=== PATIENT | female | born 1955 | race Caucasian/White ===

== ENCOUNTER 2024-05-07 17:10 | Emergency (ER) | payer MEDICARE, MEDICAID ==
[2024-05-07 17:35] LABS: BASOPHILS PERCENT AUTO 0.5 % (0.0-1.0); HEMATOCRIT 48.5 % (37.0-47.0); HEMOGLOBIN 15.9 g/dL (12.0-16.0); LYMPHOCYTES PERCENT AUTO 23.8 % (20.5-50.1); MEAN CORPUSCULAR HEMOGLOBIN 29.7 pg (27.0-34.0); MEAN CORPUSCULAR HGB CONC 32.8 g/dL (33.0-35.0); MEAN CORPUSCULAR VOLUME 90.7 fL (80-100); MONOCYTES PERCENT AUTO 6.7 % (2-8); PLATELET COUNT,PLT 275 10^3/uL (150-450); RED BLOOD CELL COUNT 5.35 10^6/uL (4.2-5.4); WHITE BLOOD CELL COUNT,WBC 7.4 10^3/uL (5.0-10.0)
[2024-05-07] MEDS: Aspirin 81 MG Tab.Chew PO ONE (17:37)
[2024-05-07 17:56] LABS: ALBUMIN 3.9 g/dL (3.4-5.0); ANION GAP 13.1 mEq/L (7-13); BILIRUBIN TOTAL 0.5 mg/dL (0.2-1.0); BUN/CREATININE RATIO 13.4 (No establ ref range); CALCIUM 10.9 mg/dL (8.5-10.1); CREATININE 0.97 mg/dL (0.55-1.02); EST CRCL DRUG DOSING (CG) 38.76 mL/min; MAGNESIUM 1.7 mg/dL (1.8-2.4); POTASSIUM,K 4.1 mmol/L (3.5-5.1); PROTEIN TOTAL,TP 7.9 g/dL (6.4-8.2)
[2024-05-07] MEDS: Acetaminophen 325 MG Tab PO ONE (18:24)
[2024-05-07] MEDS: Magnesium Sulfate/Water Premix 2 GM in Premix Bag 1 BAG IV ONE (18:24)
[2024-05-07 18:27] LABS: APPEARANCE,URINE SLIGHTLY CLOUDY (CLEAR); BILIRUBIN,URINE NEGATIVE (NEGATIVE); COLOR,URINE YELLOW (YELLOW); GLUCOSE,URINE NEGATIVE (NEGATIVE); KETONES,URINE NEGATIVE (NEGATIVE); LEUKOCYTE ESTERASE,URINE SMALL (NEGATIVE); NITRITE,URINE POSITIVE (NEGATIVE); OCCULT BLOOD,URINE NEGATIVE (NEGATIVE); PROTEIN,URINE NEGATIVE (NEGATIVE); UROBILINOGEN,URINE 0.2 mg/dL (0.2-1.0)
[2024-05-07 18:37] LABS: BACTERIA,URINE MANY /HPF (0-FEW/HPF); EPITHELIAL CELLS,URINE MODERATE /HPF (NOT SEEN); RBC,URINE 0-5 /HPF (0-5); WBC,URINE 40-50 /HPF (0-5/HPF)
[2024-05-07 18:38] LABS: MUCUS,URINE FEW /LPF (NOT SEEN)
[2024-05-07] MEDS: cefTRIAXone 1 GM Vial IVPUSH ONE (18:56)
[2024-05-07 19:04] LABS: LACTIC ACID 1.6 mmol/L (0.4-2.0)
== END 2024-05-07 20:26 | disposition home or self-care (01) ==
LOC: DL.ED 17:10
DX: R07.2 Precordial pain (principal); N39.0 Urinary tract infection, site not specified; E83.42 Hypomagnesemia; L73.2 Hidradenitis suppurativa; Z79.82 Long term (current) use of aspirin; Z79.84 Long term (current) use of oral hypoglycemic drugs; Z79.899 Other long term (current) drug therapy; Z79.891 Long term (current) use of opiate analgesic; Z88.8 Allergy status to other drugs, medicaments and biological substances; Z91.048 Other nonmedicinal substance allergy status
CPT/HCPCS: 36415; 71045; 80053; 81001; 83605; 83690; 83735; 83880; 84484; 85025; 85379; 87086; 87804; 93005; 96365; 96366; 96375; 99285; A9270; J0696; J3475; U0002; 87088; 87186; 93010; 99284

== ENCOUNTER 2024-09-14 11:50 | Inpatient (IN) | payer OTHER, MEDICAID ==
[2024-09-14] MEDS: Iopamidol 612 MG/ML 100 ML Bottle IVPUSH ONE (12:28)
[2024-09-14 12:48] LABS: BASOPHILS PERCENT AUTO 0.6 % (0.0-1.0); EOSINOPHILS PERCENT AUTO 0.1 % (1.0-3.0); HEMATOCRIT 53.2 % (37.0-47.0); HEMOGLOBIN 17.8 g/dL (12.0-16.0); LYMPHOCYTES PERCENT AUTO 10.5 % (20.5-50.1); MEAN CORPUSCULAR HEMOGLOBIN 31.4 pg (27.0-34.0); MEAN CORPUSCULAR HGB CONC 33.5 g/dL (33.0-35.0); MEAN CORPUSCULAR VOLUME 93.8 fL (80-100); MONOCYTES PERCENT AUTO 5.2 % (2-8); NEUTROPHILS PERCENT AUTO 83.6 % (42.2-75.2); PLATELET COUNT,PLT 340 10^3/uL (150-450); RED BLOOD CELL COUNT 5.67 10^6/uL (4.2-5.4); WHITE BLOOD CELL COUNT,WBC 12.8 10^3/uL (5.0-10.0)
[2024-09-14 13:07] LABS: A/G RATIO 0.8; ALANINE AMINOTRANSFERASE,ALT 43 U/L (14-59); ALBUMIN 3.8 g/dL (3.4-5.0); ALKALINE PHOSPHATASE 92 U/L (46-116); ANION GAP 19.8 mEq/L (7-13); ASPARTATE AMNIOTRANSFERASE,AST 77 U/L (15-37); BILIRUBIN TOTAL 1.2 mg/dL (0.2-1.0); BLOOD UREA NITROGEN,BUN 30 mg/dL (7-18); BUN/CREATININE RATIO 27.3 (No establ ref range); CALCIUM 11.5 mg/dL (8.5-10.1); CARBON DIOXIDE,CO2 26 mmol/L (21-32); CHLORIDE,CL 97 mmol/L (98-107); EST CRCL DRUG DOSING (CG) 34.18 mL/min; GLUCOSE RANDOM 228 mg/dL (70-99); MAGNESIUM 2.4 mg/dL (1.8-2.4); POTASSIUM,K 4.8 mmol/L (3.5-5.1); PROTEIN TOTAL,TP 8.8 g/dL (6.4-8.2); SODIUM,NA 138 mmol/L (136-145)
[2024-09-14 13:15] LABS: PROTHROMBIN TIME 10.6 SEC (9.0-12.0)
[2024-09-14 13:27] LABS: CREATINE KINASE,CK 1742 U/L (16-191); ESTIMATED GFR 54 mL/min (>=60)
[2024-09-14 13:30] LABS: ETHANOL BLOOD MEDICAL < 3 mg/dL (0)
[2024-09-14] MEDS: cefTRIAXone 1 GM Vial IVPUSH ONE (14:16)
[2024-09-14 14:19] LABS: APPEARANCE,URINE CLEAR (CLEAR); BILIRUBIN,URINE SMALL (NEGATIVE); COLOR,URINE YELLOW (YELLOW); GLUCOSE,URINE 500 (NEGATIVE); KETONES,URINE 40 (NEGATIVE); LEUKOCYTE ESTERASE,URINE NEGATIVE (NEGATIVE); NITRITE,URINE NEGATIVE (NEGATIVE); OCCULT BLOOD,URINE MODERATE (NEGATIVE); PH,URINE 5.5 (5.0-9.0); PROTEIN,URINE >=300 (NEGATIVE); UROBILINOGEN,URINE 0.2 mg/dL (0.2-1.0)
[2024-09-14] MEDS: Sodium Chloride 0.9% 2,000 ML IV ONE (14:20)
[2024-09-14 14:25] LABS: AMPHETAMINES,URINE NEGATIVE (NEGATIVE); BARBITURATES,URINE NEGATIVE (NEGATIVE); BENZODIAZEPINE,URINE NEGATIVE (NEGATIVE); MDMA (ECSTASY), URINE NEGATIVE (NEGATIVE); METHADONE,URINE NEGATIVE (NEGATIVE); METHAMPHETAMINES,URINE NEGATIVE (NEGATIVE); OPIATES,URINE NEGATIVE (NEGATIVE); OXYCODONE,URINE POSITIVE (NEGATIVE); PHENCYCLIDINE,URINE NEGATIVE (NEGATIVE); TCA,URINE NEGATIVE (NEGATIVE)
[2024-09-14 14:38] LABS: BACTERIA,URINE FEW /HPF (0-FEW/HPF); EPITHELIAL CELLS,URINE MODERATE /HPF (NOT SEEN); MUCUS,URINE OCCASIONAL /LPF (NOT SEEN); RBC,URINE 0-5 /HPF (0-5); WBC,URINE 0-5 /HPF (0-5/HPF)
[2024-09-14] MEDS: Acetaminophen 325 MG Tab PO ONE (14:56)
[2024-09-14 15:59] LABS: O2 DELIVERY DEVICE ROOM AIR
[2024-09-14 16:04] LABS: BICARBONATE,VENOUS 22 mmol/l (19-25); PCO2 VENOUS 39 mmHg (41-51); PH,VENOUS 7.38 (7.31-7.41); PO2 VENOUS 67 mmHg (35-42)
[2024-09-14] MEDS ORDERED: Albuterol/Ipratropium 3.0-0.5 MG/3 ML Neb Soln NEB PRN (16:22)
[2024-09-14] MEDS ORDERED: Sodium Chloride 0.9% 10 ML Syringe FLUSH PRN (16:22)
[2024-09-14] MEDS ORDERED: Ondansetron 4 MG/2 ML SDV IVPUSH PRN (16:22)
[2024-09-14] MEDS: Sodium Chloride 0.9% 1,000 ML IV SCH (16:43)
[2024-09-14] MEDS ORDERED: Glucagon,Human Recombinant 1 MG Vial IM PRN (17:00)
[2024-09-14] MEDS ORDERED: 50% Dextrose in Water 50 ML Syringe IVPUSH PRN (17:00)
[2024-09-14 18:08] LABS: HEMOGLOBIN A1C 5.6 % (<5.7)
[2024-09-14] MEDS: cefTRIAXone 2 GM Vial IVPUSH SCH (18:26)
[2024-09-14] MEDS: Insulin Lispro 100 Units/ML 3 ML Vial SUBCUT SCH (18:27)
[2024-09-14] MEDS: Sodium Chloride 0.9% 1,000 ML IV ONE (18:39)
[2024-09-14] MEDS: Carvedilol 3.125 MG Tab PO SCH (20:48)
[2024-09-14] MEDS: Melatonin 3 MG Tab PO PRN (20:48)
[2024-09-14] MEDS: Apixaban 5 MG Tab PO SCH (20:49)
[2024-09-14] MEDS: Pravastatin 20 MG Tab PO SCH (20:50)
[2024-09-14] MEDS: Sodium Chloride 0.9% 10 ML Syringe FLUSH SCH (20:56)
[2024-09-15] MEDS: Acetaminophen 325 MG Tab PO PRN (01:54)
[2024-09-15] MEDS: Pantoprazole 40 MG Tab.CR PO SCH (04:47)
[2024-09-15] MEDS: Acetaminophen/HYDROcodone 325-5 MG Tab PO PRN (04:47)
[2024-09-15 07:00] LABS: BASOPHILS PERCENT AUTO 0.3 % (0.0-1.0); EOSINOPHILS PERCENT AUTO 0.7 % (1.0-3.0); HEMATOCRIT 43.9 % (37.0-47.0); HEMOGLOBIN 14.2 g/dL (12.0-16.0); LYMPHOCYTES PERCENT AUTO 13.7 % (20.5-50.1); MEAN CORPUSCULAR HEMOGLOBIN 31.4 pg (27.0-34.0); MEAN CORPUSCULAR HGB CONC 32.3 g/dL (33.0-35.0); MEAN CORPUSCULAR VOLUME 97.1 fL (80-100); MONOCYTES PERCENT AUTO 9.6 % (2-8); NEUTROPHILS PERCENT AUTO 75.7 % (42.2-75.2); PLATELET COUNT,PLT 289 10^3/uL (150-450); RED BLOOD CELL COUNT 4.52 10^6/uL (4.2-5.4); WHITE BLOOD CELL COUNT,WBC 11.8 10^3/uL (5.0-10.0)
[2024-09-15 07:12] LABS: ALBUMIN 2.9 g/dL (3.4-5.0); ANION GAP 15.2 mEq/L (7-13); BILIRUBIN TOTAL 0.6 mg/dL (0.2-1.0); BUN/CREATININE RATIO 30.7 (No establ ref range); CREATININE 0.88 mg/dL (0.55-1.02); EST CRCL DRUG DOSING (CG) 42.73 mL/min; MAGNESIUM 2.2 mg/dL (1.8-2.4); POTASSIUM,K 4.2 mmol/L (3.5-5.1); PROTEIN TOTAL,TP 6.7 g/dL (6.4-8.2)
[2024-09-15 07:22] LABS: A/G RATIO 0.76
[2024-09-15] MEDS: Ezetimibe 10 MG Tab PO SCH (08:53)
[2024-09-15] MEDS: Magnesium Oxide 400 MG Tab PO SCH (08:53)
[2024-09-15] MEDS: Aspirin 81 MG Tab.EC PO SCH (08:54)
[2024-09-15] MEDS: Polyethylene Glycol 3350 Powder 17 GM Packet PO PRN (11:30)
[2024-09-15] MEDS: Docusate Sodium 100 MG Cap PO PRN (11:30)
[2024-09-15] MEDS ORDERED: QUEtiapine 25 MG Tab PO PRN (19:40)
[2024-09-15] MEDS: Ziprasidone Mesylate 20 MG Vial IM PRN (20:05)
[2024-09-15] MEDS: Saccharomyces Boulardii (Probiotic) 250 MG Cap PO SCH (20:16)
[2024-09-15] MEDS ORDERED: Diclofenac Sodium 1% Gel 100 GM Tube TOP PRN (21:38)
[2024-09-15] MEDS ORDERED: Fluticasone NASAL Spray 16 GM Bottle NASBOTH PRN (21:38)
[2024-09-15] MEDS ORDERED: Simethicone 80 MG Tab.Chew PO PRN ×2 (21:39→22:14)
[2024-09-16] MEDS: Nystatin Topical Powder 60 GM Bottle TOP ONE (00:05)
[2024-09-16] MEDS: Melatonin 3 MG Tab PO SCH (00:46)
[2024-09-16 06:40] LABS: BASOPHILS PERCENT AUTO 0.7 % (0.0-1.0); EOSINOPHILS PERCENT AUTO 3.6 % (1.0-3.0); HEMOGLOBIN 15.6 g/dL (12.0-16.0); LYMPHOCYTES PERCENT AUTO 17.5 % (20.5-50.1); MEAN CORPUSCULAR HEMOGLOBIN 31.3 pg (27.0-34.0); MEAN CORPUSCULAR HGB CONC 31.8 g/dL (33.0-35.0); MEAN CORPUSCULAR VOLUME 98.2 fL (80-100); MONOCYTES PERCENT AUTO 8.3 % (2-8); NEUTROPHILS PERCENT AUTO 69.9 % (42.2-75.2); PLATELET COUNT,PLT 276 10^3/uL (150-450); RED BLOOD CELL COUNT 4.99 10^6/uL (4.2-5.4); WHITE BLOOD CELL COUNT,WBC 10.6 10^3/uL (5.0-10.0)
[2024-09-16 07:03] LABS: A/G RATIO 0.9; ALBUMIN 3.4 g/dL (3.4-5.0); ANION GAP 13.3 mEq/L (7-13); BILIRUBIN TOTAL 0.6 mg/dL (0.2-1.0); BUN/CREATININE RATIO 23.9 (No establ ref range); C-REACTIVE PROTEIN 2.7 ng/dL (<=0.50); CALCIUM 10.2 mg/dL (8.5-10.1); CREATININE 0.71 mg/dL (0.55-1.02); EST CRCL DRUG DOSING (CG) 52.96 mL/min; MAGNESIUM 2.2 mg/dL (1.8-2.4); POTASSIUM,K 4.3 mmol/L (3.5-5.1); PROTEIN TOTAL,TP 7.4 g/dL (6.4-8.2)
[2024-09-16] MEDS ORDERED: GUAIFENESIN 200 MG PO SCH (09:00)
[2024-09-16] MEDS ORDERED: Non-Formulary Medication 1 Each (Lifitegrast [Xiidra] 1 EACH Droperette) EYEBOTH SCH (09:00)
[2024-09-16] MEDS: Gabapentin 300 MG Cap PO SCH (09:33)
[2024-09-16] MEDS: Mirtazapine 15 MG Tab PO SCH (09:34)
[2024-09-16] MEDS: Docusate Sodium 100 MG Cap PO SCH (09:34)
[2024-09-16] MEDS: Empagliflozin 25 MG Tab PO SCH (09:35)
[2024-09-16] MEDS: Loratadine 10 MG Tab PO SCH (09:35)
[2024-09-16] MEDS: Sennosides/Docusate Sodium 50-8.6 MG Tab PO PRN (09:35)
[2024-09-16] MEDS: Nystatin Topical Powder 60 GM Bottle TOP SCH (09:57)
[2024-09-16] MEDS: Lidocaine 5% 700 MG Patch TOP SCH (10:01)
[2024-09-16] MEDS: Modafinil 100 MG Tab PO SCH (13:14)
[2024-09-16] MEDS: hydrALAZINE 20 MG/ML SDV IVPUSH PRN (16:34)
[2024-09-16] MEDS: Capsaicin 0.025% Crm 60 GM Tube TOP PRN (20:15)
[2024-09-16] MEDS ORDERED: Non-Formulary Medication 1 Each (Liraglutide [Victoza 2-Pak] 18 MG/3 ML Pen) SQ SCH (21:00)
[2024-09-17 06:52] LABS: BASOPHILS PERCENT AUTO 0.6 % (0.0-1.0); EOSINOPHILS PERCENT AUTO 2.6 % (1.0-3.0); HEMATOCRIT 45.8 % (37.0-47.0); HEMOGLOBIN 14.7 g/dL (12.0-16.0); LYMPHOCYTES PERCENT AUTO 23.7 % (20.5-50.1); MEAN CORPUSCULAR HEMOGLOBIN 31.7 pg (27.0-34.0); MEAN CORPUSCULAR HGB CONC 32.1 g/dL (33.0-35.0); MEAN CORPUSCULAR VOLUME 98.9 fL (80-100); MONOCYTES PERCENT AUTO 11.1 % (2-8); PLATELET COUNT,PLT 295 10^3/uL (150-450); RED BLOOD CELL COUNT 4.63 10^6/uL (4.2-5.4); WHITE BLOOD CELL COUNT,WBC 8.6 10^3/uL (5.0-10.0)
[2024-09-17 07:09] LABS: ANION GAP 12.1 mEq/L (7-13); BILIRUBIN TOTAL 0.5 mg/dL (0.2-1.0); C-REACTIVE PROTEIN 1.78 ng/dL (<=0.50); CALCIUM 10.2 mg/dL (8.5-10.1); CREATININE 1.13 mg/dL (0.55-1.02); EST CRCL DRUG DOSING (CG) 33.27 mL/min; MAGNESIUM 2.5 mg/dL (1.8-2.4); POTASSIUM,K 4.1 mmol/L (3.5-5.1); PROTEIN TOTAL,TP 6.8 g/dL (6.4-8.2)
[2024-09-17 07:11] LABS: A/G RATIO 0.79
[2024-09-17] MEDS: Modafinil 100 MG Tab PO SCH (10:07)
[2024-09-18 06:29] LABS: BASOPHILS PERCENT AUTO 0.8 % (0.0-1.0); EOSINOPHILS PERCENT AUTO 5.7 % (1.0-3.0); HEMATOCRIT 43.2 % (37.0-47.0); HEMOGLOBIN 13.5 g/dL (12.0-16.0); LYMPHOCYTES PERCENT AUTO 29.8 % (20.5-50.1); MEAN CORPUSCULAR HEMOGLOBIN 31.3 pg (27.0-34.0); MEAN CORPUSCULAR HGB CONC 31.3 g/dL (33.0-35.0); MONOCYTES PERCENT AUTO 11.3 % (2-8); NEUTROPHILS PERCENT AUTO 52.4 % (42.2-75.2); PLATELET COUNT,PLT 284 10^3/uL (150-450); RED BLOOD CELL COUNT 4.32 10^6/uL (4.2-5.4); WHITE BLOOD CELL COUNT,WBC 7.7 10^3/uL (5.0-10.0)
[2024-09-18 06:59] LABS: A/G RATIO 0.86; ANION GAP 12.3 mEq/L (7-13); BILIRUBIN TOTAL 0.5 mg/dL (0.2-1.0); BUN/CREATININE RATIO 32.6 (No establ ref range); C-REACTIVE PROTEIN 1.01 ng/dL (<=0.50); CALCIUM 9.7 mg/dL (8.5-10.1); CREATININE 0.89 mg/dL (0.55-1.02); EST CRCL DRUG DOSING (CG) 42.25 mL/min; MAGNESIUM 2.3 mg/dL (1.8-2.4); POTASSIUM,K 4.3 mmol/L (3.5-5.1); PROTEIN TOTAL,TP 6.5 g/dL (6.4-8.2)
== END 2024-09-18 12:32 | disposition swing bed (61) | DRG 872 ==
LOC: DL.ED 11:50 → DL.MS 15:26
PROVIDERS: ADMIT Internal Medicine; ATTEND Internal Medicine
DX: A41.9 Sepsis, unspecified organism (principal); N17.9 Acute kidney failure, unspecified; Z68.43 Body mass index [BMI] 50.0-59.9, adult; E66.9 Obesity, unspecified; T79.6XXA Traumatic ischemia of muscle, initial encounter; E86.0 Dehydration; R79.89 Other specified abnormal findings of blood chemistry; M25.511 Pain in right shoulder; D75.1 Secondary polycythemia; E83.52 Hypercalcemia; E80.6 Other disorders of bilirubin metabolism; E78.5 Hyperlipidemia, unspecified; E11.319 Type 2 diabetes mellitus with unspecified diabetic retinopathy without macular edema; H35.30 Unspecified macular degeneration; E11.40 Type 2 diabetes mellitus with diabetic neuropathy, unspecified; E11.22 Type 2 diabetes mellitus with diabetic chronic kidney disease; N18.30 Chronic kidney disease, stage 3 unspecified; I12.9 Hypertensive chronic kidney disease with stage 1 through stage 4 chronic kidney disease, or unspecified chronic kidney disease; F32.A Depression, unspecified; B37.2 Candidiasis of skin and nail; W19.XXXA Unspecified fall, initial encounter; G47.33 Obstructive sleep apnea (adult) (pediatric); K76.0 Fatty (change of) liver, not elsewhere classified; N32.89 Other specified disorders of bladder; E66.813 Obesity, class 3; F41.9 Anxiety disorder, unspecified; R62.7 Adult failure to thrive; N61.0 Mastitis without abscess; Z88.8 Allergy status to other drugs, medicaments and biological substances; Z79.899 Other long term (current) drug therapy; Z79.01 Long term (current) use of anticoagulants; Z79.82 Long term (current) use of aspirin; Z79.2 Long term (current) use of antibiotics; Z79.4 Long term (current) use of insulin
CPT/HCPCS: 36415; 70450; 71045; 71260; 72125; 73030-RT; 74177; 80053; 80305-QW; 80307; 81001; 82009; 82550; 82803; 82947; 83036; 83605; 83735; 84100; 84484; 85025; 85379; 85610; 85730; 86140; 87040; 93005; 93010; 94010; 96361; 96374; 97161-GP; 97165-GO; 97535-GO; 99285; 99285-25; A9270-GY; C1758; J0360; J0696; J1815-GY; J3486; J3490; J7030; Q9967

== ENCOUNTER 2024-09-18 11:42 | Inpatient (IN) | payer MEDICARE, MEDICAID ==
[2024-09-18] MEDS ORDERED: Sodium Chloride 0.9% 10 ML Syringe FLUSH PRN ×2 (12:05)
[2024-09-18] MEDS ORDERED: 50% Dextrose in Water 50 ML Syringe IVPUSH PRN (12:05)
[2024-09-18] MEDS ORDERED: Fluticasone NASAL Spray 16 GM Bottle NASBOTH PRN (12:05)
[2024-09-18] MEDS ORDERED: Ziprasidone Mesylate 20 MG Vial IM PRN (12:05)
[2024-09-18] MEDS ORDERED: Simethicone 80 MG Tab.Chew PO PRN (12:05)
[2024-09-18] MEDS ORDERED: Albuterol/Ipratropium 3.0-0.5 MG/3 ML Neb Soln NEB PRN (12:05)
[2024-09-18] MEDS ORDERED: Glucagon,Human Recombinant 1 MG Vial IM PRN ×2 (12:05)
[2024-09-18] MEDS ORDERED: Melatonin 3 MG Tab PO PRN (12:05)
[2024-09-18] MEDS ORDERED: Ondansetron 4 MG/2 ML SDV IVPUSH PRN (12:05)
[2024-09-18] MEDS: Gabapentin 300 MG Cap PO SCH (12:56)
[2024-09-18] MEDS: Acetaminophen 325 MG Tab PO PRN (12:57)
[2024-09-18] MEDS: Capsaicin 0.025% Crm 60 GM Tube TOP PRN (15:19)
[2024-09-18] MEDS: Insulin Lispro 100 Units/ML 3 ML Vial SUBCUT SCH (17:23)
[2024-09-18] MEDS: Acetaminophen/HYDROcodone 325-5 MG Tab PO PRN (19:24)
[2024-09-18] MEDS: Carvedilol 3.125 MG Tab PO SCH (20:37)
[2024-09-18] MEDS: Melatonin 3 MG Tab PO SCH (20:38)
[2024-09-18] MEDS: Pravastatin 20 MG Tab PO SCH (20:39)
[2024-09-18] MEDS: Saccharomyces Boulardii (Probiotic) 250 MG Cap PO SCH (20:39)
[2024-09-18] MEDS: Apixaban 5 MG Tab PO SCH (20:40)
[2024-09-18] MEDS: Nystatin Topical Powder 60 GM Bottle TOP SCH (20:41)
[2024-09-18] MEDS: Sodium Chloride 0.9% 10 ML Syringe FLUSH SCH (20:46)
[2024-09-18] MEDS ORDERED: Sodium Chloride 0.9% 10 ML Syringe FLUSH SCH (21:00)
[2024-09-19] MEDS: Pantoprazole 40 MG Tab.CR PO SCH (05:57)
[2024-09-19] MEDS: Magnesium Oxide 400 MG Tab PO SCH (09:00)
[2024-09-19] MEDS: Aspirin 81 MG Tab.EC PO SCH (09:00)
[2024-09-19] MEDS: Docusate Sodium 100 MG Cap PO SCH (09:00)
[2024-09-19] MEDS: Modafinil 100 MG Tab PO SCH (09:00)
[2024-09-19] MEDS: Ezetimibe 10 MG Tab PO SCH (09:01)
[2024-09-19] MEDS: Empagliflozin 25 MG Tab PO SCH (09:01)
[2024-09-19] MEDS: Loratadine 10 MG Tab PO SCH (09:01)
[2024-09-19] MEDS: Lidocaine 5% 700 MG Patch TOP SCH (09:02)
[2024-09-19] MEDS: Mirtazapine 15 MG Tab PO SCH (09:02)
[2024-09-19] MEDS: ICOSAPENT ETHYL 1000 MG PO SCH (13:51)
[2024-09-19] MEDS: Polyethylene Glycol 3350 Powder 17 GM Packet PO PRN (16:55)
[2024-09-19] MEDS: VASCEPA PO SCH (21:53)
[2024-09-20] MEDS: Non-Formulary Medication 1 Each (Liraglutide [Victoza 2-Pak] 1.8 MG) SQ SCH (10:23)
[2024-09-20] MEDS: Non-Formulary Medication 1 Each (Lifitegrast [Xiidra] 1 DROP) EYEBOTH SCH (10:23)
[2024-09-20] MEDS: Melatonin 3 MG Tab PO SCH (21:37)
[2024-09-21] MEDS: Sennosides/Docusate Sodium 50-8.6 MG Tab PO PRN (05:03)
[2024-09-21] MEDS: BIOFREEZE TOP PRN (18:02)
[2024-09-21] MEDS: Temazepam 15 MG Cap PO PRN (20:47)
[2024-09-21] MEDS: Docusate Sodium 100 MG Cap PO PRN (20:47)
[2024-09-21] MEDS ORDERED: Non-Formulary Medication 1 Each (Gabapentin 600 MG Tablet) PO SCH (21:00)
[2024-09-24 06:35] LABS: BASOPHILS PERCENT AUTO 0.5 % (0.0-1.0); EOSINOPHILS PERCENT AUTO 4.7 % (1.0-3.0); HEMATOCRIT 40.6 % (37.0-47.0); HEMOGLOBIN 12.9 g/dL (12.0-16.0); LYMPHOCYTES PERCENT AUTO 28.8 % (20.5-50.1); MEAN CORPUSCULAR HEMOGLOBIN 31.5 pg (27.0-34.0); MEAN CORPUSCULAR HGB CONC 31.8 g/dL (33.0-35.0); MONOCYTES PERCENT AUTO 10.7 % (2-8); NEUTROPHILS PERCENT AUTO 55.3 % (42.2-75.2); PLATELET COUNT,PLT 288 10^3/uL (150-450); WHITE BLOOD CELL COUNT,WBC 6.6 10^3/uL (5.0-10.0)
[2024-09-24 06:59] LABS: A/G RATIO 0.91; ANION GAP 9.4 mEq/L (7-13); BILIRUBIN TOTAL 0.2 mg/dL (0.2-1.0); BUN/CREATININE RATIO 24.1 (No establ ref range); CALCIUM 9.7 mg/dL (8.5-10.1); CREATININE 0.83 mg/dL (0.55-1.02); EST CRCL DRUG DOSING (CG) 45.3 mL/min; MAGNESIUM 2.2 mg/dL (1.8-2.4); POTASSIUM,K 4.4 mmol/L (3.5-5.1); PROTEIN TOTAL,TP 6.3 g/dL (6.4-8.2)
[2024-09-25 11:42] LABS: APPEARANCE,URINE CLEAR (CLEAR); BILIRUBIN,URINE NEGATIVE (NEGATIVE); COLOR,URINE YELLOW (YELLOW); GLUCOSE,URINE 500 (NEGATIVE); KETONES,URINE NEGATIVE (NEGATIVE); LEUKOCYTE ESTERASE,URINE NEGATIVE (NEGATIVE); NITRITE,URINE NEGATIVE (NEGATIVE); OCCULT BLOOD,URINE NEGATIVE (NEGATIVE); PH,URINE 5.5 (5.0-9.0); PROTEIN,URINE NEGATIVE (NEGATIVE); UROBILINOGEN,URINE 0.2 mg/dL (0.2-1.0)
[2024-09-25 12:24] LABS: BACTERIA,URINE FEW /HPF (0-FEW/HPF); EPITHELIAL CELLS,URINE FEW /HPF (NOT SEEN); RBC,URINE 0-5 /HPF (0-5)
[2024-09-25 12:25] LABS: YEAST,URINE FEW /HPF (NOT SEEN)
[2024-09-25] MEDS: Fluconazole 100 MG Tab PO ONE (16:08)
[2024-09-26] MEDS: Fluconazole 100 MG Tab PO SCH (08:57)
== END 2024-09-27 13:50 | disposition home or self-care (01) | DRG 948 ==
LOC: DL.MS 12:13
PROVIDERS: ADMIT Internal Medicine; ATTEND Internal Medicine
DX: R53.1 Weakness (principal); M62.82 Rhabdomyolysis; Z68.43 Body mass index [BMI] 50.0-59.9, adult; N39.0 Urinary tract infection, site not specified; H04.129 Dry eye syndrome of unspecified lacrimal gland; I25.10 Atherosclerotic heart disease of native coronary artery without angina pectoris; I10 Essential (primary) hypertension; E78.5 Hyperlipidemia, unspecified; I48.0 Paroxysmal atrial fibrillation; N18.30 Chronic kidney disease, stage 3 unspecified; E11.22 Type 2 diabetes mellitus with diabetic chronic kidney disease; E11.40 Type 2 diabetes mellitus with diabetic neuropathy, unspecified; E66.9 Obesity, unspecified; M19.90 Unspecified osteoarthritis, unspecified site; F32.A Depression, unspecified; N61.0 Mastitis without abscess; B37.9 Candidiasis, unspecified; E83.52 Hypercalcemia; R79.89 Other specified abnormal findings of blood chemistry; R82.4 Acetonuria; R80.9 Proteinuria, unspecified; F41.9 Anxiety disorder, unspecified; E66.813 Obesity, class 3; E11.319 Type 2 diabetes mellitus with unspecified diabetic retinopathy without macular edema; D63.1 Anemia in chronic kidney disease; B96.89 Other specified bacterial agents as the cause of diseases classified elsewhere; Z91.199 Patient's noncompliance with other medical treatment and regimen due to unspecified reason; Z88.8 Allergy status to other drugs, medicaments and biological substances; Z91.09 Other allergy status, other than to drugs and biological substances; Z79.01 Long term (current) use of anticoagulants; Z79.82 Long term (current) use of aspirin; Z79.4 Long term (current) use of insulin; Z79.1 Long term (current) use of non-steroidal anti-inflammatories (NSAID); Z79.899 Other long term (current) drug therapy
CPT/HCPCS: 36415; 80053; 81001; 82947; 83735; 85025; 97110-GO; 97110-GP; 97116-GP; 97161-GP; 97165-GO; 97530-GO; 97530-GP; 97535-GO; 99306; 99309; 99315; A9270-GY; J3490

== ENCOUNTER 2024-09-30 16:41 | Emergency (ER) | payer MEDICARE, MEDICAID ==
[2024-09-30 17:19] LABS: BASOPHILS PERCENT AUTO 0.5 % (0.0-1.0); EOSINOPHILS PERCENT AUTO 2.5 % (1.0-3.0); HEMATOCRIT 45.9 % (37.0-47.0); HEMOGLOBIN 15.5 g/dL (12.0-16.0); LYMPHOCYTES PERCENT AUTO 12.9 % (20.5-50.1); MEAN CORPUSCULAR HEMOGLOBIN 31.6 pg (27.0-34.0); MEAN CORPUSCULAR HGB CONC 33.8 g/dL (33.0-35.0); MEAN CORPUSCULAR VOLUME 93.5 fL (80-100); MONOCYTES PERCENT AUTO 6.4 % (2-8); NEUTROPHILS PERCENT AUTO 77.7 % (42.2-75.2); PLATELET COUNT,PLT 289 10^3/uL (150-450); RED BLOOD CELL COUNT 4.91 10^6/uL (4.2-5.4); WHITE BLOOD CELL COUNT,WBC 12.1 10^3/uL (5.0-10.0)
[2024-09-30 17:42] LABS: ALBUMIN 3.9 g/dL (3.4-5.0); ANION GAP 15.1 mEq/L (7-13); BILIRUBIN DIRECT 0.1 mg/dL (0.0-0.2); BILIRUBIN INDIRECT 0.3; BILIRUBIN TOTAL 0.4 mg/dL (0.2-1.0); CALCIUM 11.2 mg/dL (8.5-10.1); CREATININE 1.15 mg/dL (0.55-1.02); EST CRCL DRUG DOSING (CG) 32.7 mL/min; POTASSIUM,K 4.1 mmol/L (3.5-5.1); PROTEIN TOTAL,TP 7.7 g/dL (6.4-8.2)
[2024-09-30 18:31] LABS: APPEARANCE,URINE CLEAR (CLEAR); BILIRUBIN,URINE NEGATIVE (NEGATIVE); COLOR,URINE YELLOW (YELLOW); GLUCOSE,URINE >=1000 (NEGATIVE); KETONES,URINE NEGATIVE (NEGATIVE); LEUKOCYTE ESTERASE,URINE TRACE (NEGATIVE); NITRITE,URINE NEGATIVE (NEGATIVE); OCCULT BLOOD,URINE TRACE-INTACT (NEGATIVE); PH,URINE 5.5 (5.0-9.0); PROTEIN,URINE NEGATIVE (NEGATIVE); UROBILINOGEN,URINE 0.2 mg/dL (0.2-1.0)
[2024-09-30 18:41] LABS: BACTERIA,URINE FEW /HPF (0-FEW/HPF); EPITHELIAL CELLS,URINE FEW /HPF (NOT SEEN); MUCUS,URINE MODERATE /LPF (NOT SEEN); RBC,URINE 0-5 /HPF (0-5)
[2024-09-30 18:42] LABS: AMORPHOUS SEDIMENT,URINE FEW /HPF (NOT SEEN)
== END 2024-09-30 19:34 | disposition home or self-care (01) ==
LOC: DL.ED 16:41
DX: R53.1 Weakness (principal); M25.561 Pain in right knee; E11.9 Type 2 diabetes mellitus without complications; Z88.8 Allergy status to other drugs, medicaments and biological substances; Z91.048 Other nonmedicinal substance allergy status; Z79.01 Long term (current) use of anticoagulants; Z79.82 Long term (current) use of aspirin; Z79.2 Long term (current) use of antibiotics; Z79.899 Other long term (current) drug therapy; Z79.4 Long term (current) use of insulin; Z79.891 Long term (current) use of opiate analgesic
CPT/HCPCS: 36415; 71045; 73560-RT; 80048; 80076; 81001; 84484; 85025; 87040; 87086; 87428-QW; 93005; 99285

== ENCOUNTER 2024-10-01 10:42 | Inpatient (IN) | payer MEDICARE, MEDICAID ==
[2024-10-01 11:15] LABS: BASOPHILS PERCENT AUTO 0.6 % (0.0-1.0); EOSINOPHILS PERCENT AUTO 0.7 % (1.0-3.0); HEMATOCRIT 45.4 % (37.0-47.0); HEMOGLOBIN 14.6 g/dL (12.0-16.0); LYMPHOCYTES PERCENT AUTO 16.4 % (20.5-50.1); MEAN CORPUSCULAR HEMOGLOBIN 31.1 pg (27.0-34.0); MEAN CORPUSCULAR HGB CONC 32.2 g/dL (33.0-35.0); MEAN CORPUSCULAR VOLUME 96.8 fL (80-100); MONOCYTES PERCENT AUTO 4.9 % (2-8); NEUTROPHILS PERCENT AUTO 77.4 % (42.2-75.2); PLATELET COUNT,PLT 273 10^3/uL (150-450); RED BLOOD CELL COUNT 4.69 10^6/uL (4.2-5.4); WHITE BLOOD CELL COUNT,WBC 9.6 10^3/uL (5.0-10.0)
[2024-10-01 11:42] LABS: ANION GAP 14.1 mEq/L (7-13); CALCIUM 11.1 mg/dL (8.5-10.1); CREATININE 0.94 mg/dL (0.55-1.02); POTASSIUM,K 4.1 mmol/L (3.5-5.1)
[2024-10-01] MEDS: Sodium Chloride 0.9% 500 ML IV SCH (11:44)
[2024-10-01] MEDS ORDERED: Sennosides/Docusate Sodium 50-8.6 MG Tab PO PRN (15:07)
[2024-10-01] MEDS ORDERED: Sodium Chloride 0.9% 10 ML Syringe FLUSH PRN (15:07)
[2024-10-01] MEDS ORDERED: Docusate Sodium 100 MG Cap PO PRN (15:07)
[2024-10-01] MEDS ORDERED: Ondansetron 4 MG/2 ML SDV IVPUSH PRN (15:07)
[2024-10-01] MEDS ORDERED: Albuterol/Ipratropium 3.0-0.5 MG/3 ML Neb Soln NEB PRN (15:07)
[2024-10-01] MEDS ORDERED: Lidocaine 5% 700 MG Patch TOP PRN (15:51)
[2024-10-01] MEDS ORDERED: 50% Dextrose in Water 50 ML Syringe IVPUSH PRN (16:12)
[2024-10-01] MEDS ORDERED: Glucagon,Human Recombinant 1 MG Vial IM PRN (16:12)
[2024-10-01] MEDS: Insulin Lispro 100 Units/ML 3 ML Vial SUBCUT SCH (17:36)
[2024-10-01] MEDS: oxyCODONE 5 MG Tab PO PRN (21:15)
[2024-10-01] MEDS: Melatonin 3 MG Tab PO PRN (21:15)
[2024-10-01] MEDS: Gabapentin 300 MG Cap PO SCH (21:15)
[2024-10-01] MEDS: Carvedilol 3.125 MG Tab PO SCH (21:16)
[2024-10-01] MEDS: Nystatin Topical Powder 60 GM Bottle TOP SCH (21:16)
[2024-10-01] MEDS: Pravastatin 20 MG Tab PO SCH (21:16)
[2024-10-01] MEDS: Sodium Chloride 0.9% 10 ML Syringe FLUSH SCH (21:17)
[2024-10-01] MEDS: Apixaban 5 MG Tab PO SCH (21:17)
[2024-10-02 06:26] LABS: BASOPHILS PERCENT AUTO 0.9 % (0.0-1.0); HEMATOCRIT 41.7 % (37.0-47.0); HEMOGLOBIN 13.1 g/dL (12.0-16.0); LYMPHOCYTES PERCENT AUTO 31.3 % (20.5-50.1); MEAN CORPUSCULAR HGB CONC 31.4 g/dL (33.0-35.0); MEAN CORPUSCULAR VOLUME 98.6 fL (80-100); MONOCYTES PERCENT AUTO 9.6 % (2-8); NEUTROPHILS PERCENT AUTO 54.2 % (42.2-75.2); PLATELET COUNT,PLT 254 10^3/uL (150-450); RED BLOOD CELL COUNT 4.23 10^6/uL (4.2-5.4)
[2024-10-02 06:54] LABS: ALBUMIN 3.1 g/dL (3.4-5.0); BILIRUBIN TOTAL 0.3 mg/dL (0.2-1.0); BUN/CREATININE RATIO 28.7 (No establ ref range); CALCIUM 9.8 mg/dL (8.5-10.1); CREATININE 0.94 mg/dL (0.55-1.02); MAGNESIUM 2.5 mg/dL (1.8-2.4); PROTEIN TOTAL,TP 6.5 g/dL (6.4-8.2)
[2024-10-02 07:01] LABS: A/G RATIO 0.91
[2024-10-02] MEDS ORDERED: Magnesium Oxide 400 MG Tab PO SCH (09:00)
[2024-10-02] MEDS: Potassium Chloride 10 MEQ Tab.ER PO SCH (09:02)
[2024-10-02] MEDS: Empagliflozin 25 MG Tab PO SCH (09:02)
[2024-10-02] MEDS: Ezetimibe 10 MG Tab PO SCH (09:02)
[2024-10-02] MEDS: Aspirin 81 MG Tab.EC PO SCH (09:02)
[2024-10-02] MEDS: Mirtazapine 15 MG Tab PO SCH (09:02)
[2024-10-02] MEDS: Loratadine 10 MG Tab PO SCH (09:02)
[2024-10-02] MEDS: Polyethylene Glycol 3350 Powder 17 GM Packet PO PRN (12:26)
[2024-10-02] MEDS: Capsaicin 0.025% Crm 60 GM Tube TOP PRN (12:26)
[2024-10-02] MEDS: Acetaminophen 325 MG Tab PO PRN (15:45)
[2024-10-03 06:19] LABS: BASOPHILS PERCENT AUTO 0.7 % (0.0-1.0); EOSINOPHILS PERCENT AUTO 6.8 % (1.0-3.0); HEMOGLOBIN 12.5 g/dL (12.0-16.0); LYMPHOCYTES PERCENT AUTO 34.2 % (20.5-50.1); MEAN CORPUSCULAR HEMOGLOBIN 31.3 pg (27.0-34.0); MEAN CORPUSCULAR HGB CONC 31.3 g/dL (33.0-35.0); MONOCYTES PERCENT AUTO 10.3 % (2-8); PLATELET COUNT,PLT 257 10^3/uL (150-450); WHITE BLOOD CELL COUNT,WBC 5.4 10^3/uL (5.0-10.0)
[2024-10-03 06:47] LABS: ALBUMIN 2.8 g/dL (3.4-5.0); BILIRUBIN TOTAL 0.2 mg/dL (0.2-1.0); BUN/CREATININE RATIO 28.4 (No establ ref range); CALCIUM 9.6 mg/dL (8.5-10.1); CREATININE 0.74 mg/dL (0.55-1.02); EST CRCL DRUG DOSING (CG) 50.81 mL/min; MAGNESIUM 2.4 mg/dL (1.8-2.4)
[2024-10-03 06:48] LABS: A/G RATIO 0.88
[2024-10-03] MEDS: Mirtazapine 15 MG Tab PO SCH (20:26)
[2024-10-04 06:23] LABS: BASOPHILS PERCENT AUTO 1.1 % (0.0-1.0); EOSINOPHILS PERCENT AUTO 6.9 % (1.0-3.0); HEMATOCRIT 40.6 % (37.0-47.0); HEMOGLOBIN 12.5 g/dL (12.0-16.0); LYMPHOCYTES PERCENT AUTO 33.4 % (20.5-50.1); MEAN CORPUSCULAR HEMOGLOBIN 30.9 pg (27.0-34.0); MEAN CORPUSCULAR HGB CONC 30.8 g/dL (33.0-35.0); MEAN CORPUSCULAR VOLUME 100.5 fL (80-100); MONOCYTES PERCENT AUTO 8.6 % (2-8); PLATELET COUNT,PLT 249 10^3/uL (150-450); RED BLOOD CELL COUNT 4.04 10^6/uL (4.2-5.4); WHITE BLOOD CELL COUNT,WBC 6.4 10^3/uL (5.0-10.0)
[2024-10-04 07:48] LABS: ALBUMIN 2.9 g/dL (3.4-5.0); ANION GAP 10.6 mEq/L (7-13); BILIRUBIN TOTAL 0.2 mg/dL (0.2-1.0); BUN/CREATININE RATIO 19.5 (No establ ref range); CALCIUM 9.5 mg/dL (8.5-10.1); CREATININE 0.87 mg/dL (0.55-1.02); EST CRCL DRUG DOSING (CG) 43.22 mL/min; MAGNESIUM 2.3 mg/dL (1.8-2.4); POTASSIUM,K 4.6 mmol/L (3.5-5.1); PROTEIN TOTAL,TP 6.3 g/dL (6.4-8.2)
[2024-10-04 07:49] LABS: A/G RATIO 0.85
[2024-10-04 19:46] LABS: CALCIUM 10.4 mg/dL (8.8-10.2)
[2024-10-05 07:00] LABS: BASOPHILS PERCENT AUTO 0.9 % (0.0-1.0); HEMATOCRIT 39.5 % (37.0-47.0); LYMPHOCYTES PERCENT AUTO 27.6 % (20.5-50.1); MEAN CORPUSCULAR HEMOGLOBIN 31.9 pg (27.0-34.0); MEAN CORPUSCULAR HGB CONC 32.9 g/dL (33.0-35.0); MEAN CORPUSCULAR VOLUME 97.1 fL (80-100); MONOCYTES PERCENT AUTO 9.8 % (2-8); NEUTROPHILS PERCENT AUTO 55.7 % (42.2-75.2); PLATELET COUNT,PLT 239 10^3/uL (150-450); RED BLOOD CELL COUNT 4.07 10^6/uL (4.2-5.4); WHITE BLOOD CELL COUNT,WBC 6.5 10^3/uL (5.0-10.0)
[2024-10-05 07:19] LABS: ALBUMIN 3.1 g/dL (3.4-5.0); ANION GAP 10.6 mEq/L (7-13); BILIRUBIN TOTAL 0.3 mg/dL (0.2-1.0); BUN/CREATININE RATIO 17.8 (No establ ref range); CALCIUM 10.2 mg/dL (8.5-10.1); CREATININE 1.01 mg/dL (0.55-1.02); EST CRCL DRUG DOSING (CG) 37.23 mL/min; MAGNESIUM 2.2 mg/dL (1.8-2.4); POTASSIUM,K 4.6 mmol/L (3.5-5.1); PROTEIN TOTAL,TP 6.3 g/dL (6.4-8.2)
[2024-10-05 07:21] LABS: A/G RATIO 0.97
[2024-10-05] MEDS: Furosemide 20 MG/2 ML VIAL IVPUSH ONE (12:29)
[2024-10-05] MEDS: Bumetanide 1 MG Tab PO SCH (14:07)
[2024-10-06 06:25] LABS: BASOPHILS PERCENT AUTO 0.7 % (0.0-1.0); EOSINOPHILS PERCENT AUTO 5.9 % (1.0-3.0); HEMATOCRIT 42.8 % (37.0-47.0); HEMOGLOBIN 13.6 g/dL (12.0-16.0); LYMPHOCYTES PERCENT AUTO 26.2 % (20.5-50.1); MEAN CORPUSCULAR HEMOGLOBIN 31.4 pg (27.0-34.0); MEAN CORPUSCULAR HGB CONC 31.8 g/dL (33.0-35.0); MEAN CORPUSCULAR VOLUME 98.8 fL (80-100); MONOCYTES PERCENT AUTO 8.6 % (2-8); NEUTROPHILS PERCENT AUTO 58.6 % (42.2-75.2); PLATELET COUNT,PLT 252 10^3/uL (150-450); RED BLOOD CELL COUNT 4.33 10^6/uL (4.2-5.4); WHITE BLOOD CELL COUNT,WBC 7.4 10^3/uL (5.0-10.0)
[2024-10-06 07:17] LABS: ALBUMIN 3.4 g/dL (3.4-5.0); ANION GAP 14.6 mEq/L (7-13); BILIRUBIN TOTAL 0.4 mg/dL (0.2-1.0); BUN/CREATININE RATIO 21.6 (No establ ref range); CALCIUM 10.6 mg/dL (8.5-10.1); CREATININE 1.16 mg/dL (0.55-1.02); EST CRCL DRUG DOSING (CG) 32.41 mL/min; MAGNESIUM 2.2 mg/dL (1.8-2.4); POTASSIUM,K 4.6 mmol/L (3.5-5.1); PROTEIN TOTAL,TP 6.8 g/dL (6.4-8.2)
[2024-10-07 09:38] LABS: BASOPHILS PERCENT AUTO 0.4 % (0.0-1.0); EOSINOPHILS PERCENT AUTO 5.4 % (1.0-3.0); HEMOGLOBIN 13.5 g/dL (12.0-16.0); LYMPHOCYTES PERCENT AUTO 19.5 % (20.5-50.1); MEAN CORPUSCULAR HEMOGLOBIN 31.4 pg (27.0-34.0); MEAN CORPUSCULAR HGB CONC 32.1 g/dL (33.0-35.0); MEAN CORPUSCULAR VOLUME 97.7 fL (80-100); MONOCYTES PERCENT AUTO 6.4 % (2-8); NEUTROPHILS PERCENT AUTO 68.3 % (42.2-75.2); PLATELET COUNT,PLT 242 10^3/uL (150-450); WHITE BLOOD CELL COUNT,WBC 7.5 10^3/uL (5.0-10.0)
[2024-10-07 10:00] LABS: A/G RATIO 0.89; ALBUMIN 3.1 g/dL (3.4-5.0); ANION GAP 12.6 mEq/L (7-13); BILIRUBIN TOTAL 0.3 mg/dL (0.2-1.0); BUN/CREATININE RATIO 22.6 (No establ ref range); CALCIUM 10.1 mg/dL (8.5-10.1); CREATININE 1.15 mg/dL (0.55-1.02); EST CRCL DRUG DOSING (CG) 32.7 mL/min; POTASSIUM,K 4.6 mmol/L (3.5-5.1); PROTEIN TOTAL,TP 6.6 g/dL (6.4-8.2)
[2024-10-07] MEDS: Sodium Chloride 0.9% 1,000 ML IV SCH (13:54)
[2024-10-08 09:44] LABS: BASOPHILS PERCENT AUTO 0.6 % (0.0-1.0); EOSINOPHILS PERCENT AUTO 5.9 % (1.0-3.0); HEMATOCRIT 41.5 % (37.0-47.0); HEMOGLOBIN 13.1 g/dL (12.0-16.0); MEAN CORPUSCULAR HEMOGLOBIN 31.2 pg (27.0-34.0); MEAN CORPUSCULAR HGB CONC 31.6 g/dL (33.0-35.0); MEAN CORPUSCULAR VOLUME 98.8 fL (80-100); MONOCYTES PERCENT AUTO 8.6 % (2-8); NEUTROPHILS PERCENT AUTO 61.9 % (42.2-75.2); PLATELET COUNT,PLT 229 10^3/uL (150-450); WHITE BLOOD CELL COUNT,WBC 7.1 10^3/uL (5.0-10.0)
[2024-10-08 10:17] LABS: A/G RATIO 0.88; ANION GAP 12.9 mEq/L (7-13); BILIRUBIN TOTAL 0.3 mg/dL (0.2-1.0); BUN/CREATININE RATIO 20.2 (No establ ref range); CREATININE 0.99 mg/dL (0.55-1.02); EST CRCL DRUG DOSING (CG) 37.98 mL/min; MAGNESIUM 2.1 mg/dL (1.8-2.4); POTASSIUM,K 4.9 mmol/L (3.5-5.1); PROTEIN TOTAL,TP 6.4 g/dL (6.4-8.2)
[2024-10-08] MEDS ORDERED: 50% Dextrose in Water 50 ML Syringe IVPUSH PRN (10:23)
[2024-10-08] MEDS ORDERED: Glucagon,Human Recombinant 1 MG Vial IM PRN (10:23)
[2024-10-08] MEDS: Insulin Lispro 100 Units/ML 3 ML Vial SUBCUT SCH (12:36)
[2024-10-08] MEDS: Insulin Glarg,Human.Rec.Analog 100 Unit/ML 10 ML Vial SUBCUT SCH (20:32)
[2024-10-09] MEDS: Non-Formulary Medication 1 Each (Lifitegrast [Xiidra] 1 EACH Droperette) EYEBOTH SCH (09:06)
[2024-10-10] MEDS: Sodium Chloride 0.9% 1,000 ML IV SCH (11:52)
== END 2024-10-11 08:40 | DRG 683 ==
LOC: DL.ED 10:42 → DL.MS 12:13 → OBSVTOIN 10-03 16:12
PROVIDERS: ADMIT Internal Medicine; ATTEND Internal Medicine
DX: R53.1 Weakness (principal); M25.561 Pain in right knee; Z91.81 History of falling; E11.9 Type 2 diabetes mellitus without complications; N17.9 Acute kidney failure, unspecified; I42.9 Cardiomyopathy, unspecified; Z68.43 Body mass index [BMI] 50.0-59.9, adult; M17.0 Bilateral primary osteoarthritis of knee; E11.40 Type 2 diabetes mellitus with diabetic neuropathy, unspecified; E66.01 Morbid (severe) obesity due to excess calories; G89.29 Other chronic pain; R29.6 Repeated falls; Z96.651 Presence of right artificial knee joint; F15.90 Other stimulant use, unspecified, uncomplicated; N18.9 Chronic kidney disease, unspecified; E78.5 Hyperlipidemia, unspecified; I25.10 Atherosclerotic heart disease of native coronary artery without angina pectoris; I48.0 Paroxysmal atrial fibrillation; E11.319 Type 2 diabetes mellitus with unspecified diabetic retinopathy without macular edema; Z74.09 Other reduced mobility; M54.50 Low back pain, unspecified; L73.2 Hidradenitis suppurativa; F32.A Depression, unspecified; E83.52 Hypercalcemia; I12.9 Hypertensive chronic kidney disease with stage 1 through stage 4 chronic kidney disease, or unspecified chronic kidney disease; E11.22 Type 2 diabetes mellitus with diabetic chronic kidney disease; D75.89 Other specified diseases of blood and blood-forming organs; E86.0 Dehydration; Z88.8 Allergy status to other drugs, medicaments and biological substances; Z79.01 Long term (current) use of anticoagulants; Z98.890 Other specified postprocedural states; Z79.82 Long term (current) use of aspirin; Z79.4 Long term (current) use of insulin; Z79.899 Other long term (current) drug therapy
CPT/HCPCS: 36415; 80048; 80053; 82310; 82607; 82746; 82947; 83735; 83970; 84484; 85025; 93010; 94010; 97110-GO; 97110-GP; 97161-GP; 97165-GO; 97530-GO; 97530-GP; 99222; 99232; 99239; 99284; 99285; A9270-GY; J1815-GY; J1940; J3490; J7030